=== PATIENT | male | born 1980 | race Caucasian/White ===

== ENCOUNTER 2017-01-27 04:32 | Emergency (ER) | payer SELFPAY ==
[2017-01-27] MEDS ORDERED: Sodium Chloride 0.9% 1,000 ML IV STA (04:57)
--- NOTE | 2017-01-27 04:59 | ED PDOC ---
HPI: Trauma/Fall - HPI Time Seen by Provider: 01/27/17 04:39 Chief Complaint (Nursing): Trauma Chief Complaint (Provider): Fall chest pain History Per: Patient Additional Complaint(s): Pt is a 37 yo male, PMH of DM, presents to ED for evaluation of falling while intoxicated. Pt admits to drinking heavily tonight. pt sustained lacerations to head and face. Denies LOC. Past Medical History Reviewed: Nursing Documentation, Vital Signs Vital Signs: Last Vital Signs Temp 98.0 F 01/27/17 04:48 Pulse 100 H 01/27/17 04:48 Resp 16 01/27/17 04:48 BP 138/83 01/27/17 04:48 Pulse Ox 96 01/27/17 04:48 - Medical History PMH: Diabetes - Surgical History Surgical History: No Surg Hx - Family History Family History: States: No Known Family Hx - Living Arrangements Living Arrangements: With Family - Social History Current smoker - smoking cessation education provided: No Alcohol: Social Drugs: Denies - Allergies Allergies/Adverse Reactions: Allergies Allergy/AdvReac Type Severity Reaction Status Date / Time No Known Allergies Allergy Verified 01/27/17 04:53 Review of Systems ROS Statement: Except As Marked, All Systems Reviewed And Found Negative Skin: Positive for: Other (abrasions) Physical Exam - Reviewed Nursing Documentation Reviewed: Yes Vital Signs Reviewed: Yes - Physical Exam Appears: Positive for: Well, Non-toxic, No Acute Distress Head Exam: Positive for: NORMAL INSPECTION, NORMOCEPHALIC. Negative for: ATRAUMATIC ((+) superficial abrasion and contusion through left eyebrow) Skin: Positive for: Normal Color, Warm, DRY Eye Exam: Positive for: EOMI, Normal appearance, PERRL ENT: Positive for: Normal ENT Inspection Neck: Positive for: Normal, Painless ROM Cardiovascular/Chest: Positive for: Regular Rate, Rhythm Respiratory: Positive for: CNT, Normal Breath Sounds Gastrointestinal/Abdominal: Positive for: Normal Exam, Bowel Sounds, Soft Back: Positive for: Normal Inspection Extremity: Positive for: Normal ROM Neurologic/Psych: Positive for: Alert, Oriented - Laboratory Results Result Diagrams: 01/27/17 04:58 - ECG O2 Sat by Pulse Oximetry: 96 Medical Decision Making Medical Decision Making: IV access established and diagnostics ordered. IVF started FS glucose: 398 Abrasion sites irrigated and dressed by telegraphic typewriter operator [id number]: CBC resulted WNL COMP, Troponin and Alcohol pending CT Head pending as well Case endorsed to ED MD, Dr. Madsen, pending diagnostic review and re-eval Disposition - Clinical Impression Clinical Impression: Alcohol intoxication, Facial contusion - Patient ED Disposition Is Patient to be Admitted: Transfer of Care (Dr. Madsen) - Disposition Disposition: Transfer of Care Disposition Time: 05:54 Condition: STABLE - POA Present On Arrival: None
[2017-01-27] MEDS ORDERED: Lidocaine 2% w Epi 1:100,000 Inj IJ ONE (05:03)
[2017-01-27] MEDS ORDERED: Silver Nitrate Topical - Stick ONE (05:37)
[2017-01-27 05:38] LABS: BASO # 0.1 K/uL (0.0-0.2); BASO % 0.6 % (0.0-2.0); EOS # 0.1 K/uL (0.0-0.7); EOS % 1.3 % (0.0-4.0); LYMPH # 4.3 K/uL (1.0-4.3); LYMPH % 44.1 % (20.0-40.0); MEAN CELL VOLUME 87.6 fl (80.0-94.0); MEAN CORPUSCULAR HEMOGLOBIN 30.8 pg (27.0-31.0); MEAN CORPUSCULAR HGB CONC 35.1 g/dL (33.0-37.0); MEAN PLATELET VOLUME 11.1 fl (7.2-11.7); MONO # 0.8 K/uL (0.0-0.8); MONO % 7.8 % (0.0-10.0); NEUT # 4.5 K/uL (1.8-7.0); NEUT % 46.2 % (50.0-75.0); NRBC % 0.5 % (0.0-0.0); RBC 4.86 Mil/uL (4.40-5.90); RED CELL DISTRIBUTION WIDTH 14.6 % (11.5-14.5); WHITE BLOOD COUNT 9.8 K/uL (4.8-10.8)
[2017-01-27 05:43] LABS: ALB/GLOB RATIO 1.2 (1.0-2.1); ALBUMIN 4.6 g/dL (3.5-5.0); ALT/SGPT 201 U/L (21-72); AST/SGOT 101 U/L (17-59); BLOOD UREA NITROGEN 14 mg/dl (9-20); CALCIUM 9.1 mg/dL (8.4-10.2); GFR AFRICAN-AMERICAN > 60; GFR NON-AFRICAN AMERICAN > 60
[2017-01-27 05:50] LABS: URINE BILIRUBIN NEGATIVE (NEGATIVE); URINE BLOOD MODERATE (NEGATIVE); URINE CLARITY CLEAR (Clear); URINE COLOR STRAW (YELLOW); URINE GLUCOSE (UA) >=500 mg/dL (Normal); URINE LEUKOCYTE ESTERASE NEG Leu/uL (Negative); URINE NITRATE NEGATIVE (NEGATIVE); URINE PROTEIN 30 mg/dL (NEGATIVE); URINE UROBILINOGEN 0.2-1.0 mg/dL (0.2-1.0)
--- NOTE | 2017-01-27 05:55 | CT ---
EXAM: CT Head Without Intravenous Contrast CLINICAL HISTORY: 37 years old, male; Injury or trauma; Fall; Initial encounter; Abrasion; Forehead; Additional info: Fall head injury, ETOH TECHNIQUE: Axial computed tomography images of the head/brain without intravenous contrast. This CT exam was performed using one or more of the following dose reduction techniques: automated exposure control, adjustment of the mA and/or kV according to patient size, and/or use of iterative reconstruction technique. Coronal and sagittal reformatted images were created and reviewed. COMPARISON: No relevant prior studies available. FINDINGS: Brain: No intracranial hemorrhage. No mass. No edema. Ventricles: No hydrocephalus. Bones/joints: No acute fracture. Soft tissues: Mild scalp swelling. Sinuses: No acute sinusitis. Mastoid air cells: No mastoid effusion. Orbits: Unremarkable as visualized. IMPRESSION: 1. No intracranial hemorrhage. 2. Incidental/non-acute findings are described above.
[2017-01-27 06:17] LABS: BARBITURATES, UR NEGATIVE (NEGATIVE); BENZODIAZEPINES, UR NEGATIVE (NEGATIVE); OPIATES, UR NEGATIVE (NEGATIVE); PHENCYCLIDINE, UR NEGATIVE (NEGATIVE)
[2017-01-27 06:40] VITALS: BP 138/83; PULSE 100; RESP 16; TEMP 98; O2SAT 96
--- NOTE | 2017-01-27 06:52 | ED PDOC ---
- Laboratory Results Result Diagrams: 01/27/17 04:58 01/27/17 04:58 - ECG O2 Sat by Pulse Oximetry: 96 (RA) Pulse Ox Interpretation: Normal Medical Decision Making Medical Decision Making: Time: 0600 Initial plan: --Patient signed out to me by Kaylyn Sarkar PA-C. Pending Blood sugar levels. --30: Repeat blood sugar levels, improvement levels now below 400. Patient stable for discharge. --Diagnosis Alcohol intoxication, facial contusion, hypoglycemia Scribe Attestation: Documented by Krystal Nunez, acting as a scribe for Joseph Madsen MD MD Scribe Attestation: All medical record entries made by the Scribe were at my direction and personally dictated by me. I have reviewed the chart and agree that the record accurately reflects my personal performance of the history, physical exam, medical decision making, and the department course for this patient. I have also personally directed, reviewed, and agree with the discharge instructions and disposition. Disposition - Clinical Impression Clinical Impression: Alcohol intoxication, Facial contusion, Hyperglycemia - POA Present On Arrival: None - Disposition Referrals: [facility] [Outside] Disposition: Routine/Home Disposition Time: 06:30 Condition: STABLE Prescriptions: metFORMIN [glucOPHAGE] 500 mg PO Q12 #20 tab Instructions: Alcohol Intoxication (ED), Contusion in Adults (ED), Diabetic Hyperglycemia (ED) Print Language: TURKISH
--- NOTE | 2017-01-27 09:47 | RAD ---
PROCEDURE: CHEST RADIOGRAPH, 1 VIEW HISTORY: fall COMPARISON: None available. FINDINGS: LUNGS: Poor inspiration with low lung volumes, crowded bronchovascular markings and mild bibasilar atelectasis. PLEURA: No pneumothorax or pleural fluid seen. CARDIOVASCULAR: Heart appears enlarged. OSSEOUS STRUCTURES: No significant abnormalities. VISUALIZED UPPER ABDOMEN: Normal. OTHER FINDINGS: None. IMPRESSION: Poor inspiration with low lung volumes, crowded bronchovascular markings and mild bibasilar atelectasis.
--- NOTE | 2017-01-27 10:52 | CARD ---
APPROVED REPORT EKG Measurement Heart [id number] <Conclusion> Normal sinus rhythm Cannot rule out Anterior infarct, age undetermined Abnormal ECG
== END 2017-01-27 07:18 | disposition home or self-care (01) ==
LOC: H.ER 04:32
DX: S00.83XA Contusion of other part of head, initial encounter (principal); F10.129 Alcohol abuse with intoxication, unspecified; Y90.8 Blood alcohol level of 240 mg/100 ml or more; E11.649 Type 2 diabetes mellitus with hypoglycemia without coma; E11.65 Type 2 diabetes mellitus with hyperglycemia; Z79.84 Long term (current) use of oral hypoglycemic drugs; W19.XXXA Unspecified fall, initial encounter
CPT/HCPCS: 70450; 71010; 80053; 81003; 82948; 84484; 85025; 93005; 99284; G0480; J7040

== ENCOUNTER 2018-08-28 05:00 | Emergency (ER) | payer SELFPAY ==
[2018-08-28 05:29] VITALS: BMI 28.5
[2018-08-28 05:31] VITALS: BP 134/81; PULSE 90; RESP 16; TEMP 98.2; O2SAT 96
--- NOTE | 2018-08-28 05:32 | ED PDOC ---
HPI: Skin/Bite Injury Time Seen by Provider: 08/28/18 05:24 Chief Complaint (Nursing): Abnormal Skin Integrity Chief Complaint (Provider): rash History Per: Patient History/Exam Limitations: no limitations Onset/Duration Of Symptoms: Hrs (1) Current Symptoms Are (Timing): Still Present Quality Of Symptoms: Itching Additional Complaint(s): 38 y/o male presents for evaluation of rash x 1 hour. Patient states he woke up with itchy skin and then noticed red splotches. Denies fever, facial swelling, difficulty speaking/swallowing, cough, chest pain, shortness of breath, palpitations, known allergen Past Medical History Reviewed: Historical Data, Nursing Documentation, Vital Signs - Medical History PMH: Diabetes - Surgical History Surgical History: No Surg Hx - Family History Family History: States: No Known Family Hx - Home Medications Home Medications: Ambulatory Orders Medication Instructions Recorded RX: metFORMIN [glucOPHAGE] 500 mg PO Q12 #20 tab 01/27/17 DiphenhydrAMINE [Benadryl] 50 mg PO Q6 PRN #30 cap 08/28/18 Famotidine [Pepcid] 20 mg PO BID #8 tab 08/28/18 predniSONE [Prednisone] 60 mg PO DAILY #12 tab 08/28/18 - Allergies Allergies/Adverse Reactions: Allergies Allergy/AdvReac Type Severity Reaction Status Date / Time No Known Allergies Allergy Verified 01/27/17 04:53 Review of Systems ROS Statement: Except As Marked, All Systems Reviewed And Found Negative Skin: Positive for: Rash Physical Exam - Reviewed Nursing Documentation Reviewed: Yes Vital Signs Reviewed: Yes - Physical Exam Appears: Positive for: Well, Non-toxic, No Acute Distress Head Exam: Positive for: ATRAUMATIC, NORMAL INSPECTION, NORMOCEPHALIC Skin: Positive for: Rash (scattered hives noted to chest, upper back, bilateral upper and lower extremities; no lesions, drainage, temp change noted) ENT: Positive for: Normal ENT Inspection Cardiovascular/Chest: Positive for: Regular Rate, Rhythm Respiratory: Positive for: Normal Breath Sounds Gastrointestinal/Abdominal: Positive for: Normal Exam Extremity: Positive for: Normal ROM Neurologic/Psych: Positive for: Alert, Oriented (x3) - Progress ED Course And Treament: -Benadryl PO -Pepcid PO -Prednisone PO On re-eval, patient states he is feeling better; rash visibly improving Patient educated on findings, discharged with rx benadryl, pepcid, prednisone Advised follow up PMD within 2-3 days Return precautions given Disposition - Clinical Impression Clinical Impression: Urticaria - Patient ED Disposition Is Patient to be Admitted: No Counseled Patient/Family Regarding: Diagnosis, Need For Followup - Disposition Referrals: [facility] [Outside] Disposition: Routine/Home Disposition Time: 05:33 Condition: IMPROVED Prescriptions: DiphenhydrAMINE [Benadryl] 50 mg PO Q6 PRN #30 cap PRN Reason: Allergy Symptoms Famotidine [Pepcid] 20 mg PO BID #8 tab predniSONE [Prednisone] 60 mg PO DAILY #12 tab Instructions: Hives Forms: orderTopia (Setswana) Print Language: FRENCH
== END 2018-08-28 06:24 | disposition home or self-care (01) ==
LOC: H.ER 05:00
DX: L50.9 Urticaria, unspecified (principal); E11.9 Type 2 diabetes mellitus without complications; Z79.84 Long term (current) use of oral hypoglycemic drugs